=== PATIENT | female | born 2000 | race Two or more races ===

== ENCOUNTER 2024-03-22 17:13 | Observation (INO) | payer MEDICAID, SELFPAY ==
[2024-03-22 17:31] VITALS: BP 119/77; PULSE 81
[2024-03-22 17:34] VITALS: BMI 40.4
--- NOTE | 2024-03-22 17:59 | XR_ITS ---
Examination: OB Transvaginal ultrasound of the pelvis, Limited Technique: Transvaginal sonographic images pelvis performed using sears scale imaging Exam date and time: March 22, 2024 1822 hrs. Indications: Labor evaluation unknown cervical length Findings: Cervix 5.1 cm presentation cephalic Impression: Cervix 5.1 cm closed.
[2024-03-22 18:11] LABS: Collection Type, Urine Clean Catch
[2024-03-22 18:36] LABS: Bilirubin,Urine Negative (Negative); Blood,Urine Negative (Negative); Clarity,Urine Turbid (Clear/Hazy); Color,Urine Yellow (Lt Yel-Yel); Glucose, Urine Negative (Negative); Ketones,Urine Negative (Negative); Leukocyte Esterase,Urine Positive (Negative); Nitrite,Urine Negative (Negative); PH,Urine 6.5 (5.0-7.0); Protein,Urine Trace (Neg - Trace); RBC,Urine 3 /hpf (0-3); Specific Gravity,Urine 1.026 (1.001-1.035); Squamous Epithelial Cell,Urine 6 /hpf (0-5); WBC,Urine 25 /hpf (0-5)
[2024-03-22 19:33] VITALS: BP 116/74; PULSE 61
== END 2024-03-22 20:00 | disposition home or self-care (01) ==
PROVIDERS: Admitting Provider Student in an Organized Health Care Education/Training Program; Visit Provider Student in an Organized Health Care Education/Training Program
DX: O47.03 False labor before 37 completed weeks of gestation, third trimester (principal); O36.8130 Decreased fetal movements, third trimester, not applicable or unspecified; Z3A.31 31 weeks gestation of pregnancy
CPT/HCPCS: 59025; 59899; 76817; 81001; G0378

== ENCOUNTER 2024-04-30 22:20 | Observation (INO) | payer MEDICAID, SELFPAY ==
[2024-04-30 22:32] VITALS: BP 159/101; PULSE 127
[2024-04-30 22:38] VITALS: BP 113/57; PULSE 103
[2024-04-30 22:47] VITALS: BMI 43.3
[2024-04-30 22:58] VITALS: BP 125/76; PULSE 88
== END 2024-04-30 23:35 | disposition home or self-care (01) ==
PROVIDERS: Admitting Provider Obstetrics & Gynecology; Visit Provider Nurse Practitioner Women's Health
DX: O47.1 False labor at or after 37 completed weeks of gestation (principal); Z3A.37 37 weeks gestation of pregnancy
CPT/HCPCS: 59025; 59899

== ENCOUNTER 2024-05-10 08:10 | Outpatient (RCR) | payer MEDICAID, SELFPAY ==
--- NOTE | 2024-04-12 08:15 | XR_ITS ---
Examination: Biophysical profile, ultrasound Date and time of exam: April 12, 2024 0844 hours INDICATIONS: Diagnosis obesity complicating Technique: Multiple transabdominal sonographic images of the pelvis abdomen obtained. Attention is directed to the breathing movement, gross body movement, amniotic fluid volume and tone. Findings: Amniotic fluid index 16.6 cm Total biophysical profile is 8 of 8. breathing movement is 2. Gross body movement is 2. tone is 2. Qualitative amniotic fluid volume is 2 Impression: Biophysical profile is 8 of 8.
[2024-04-12 09:32] VITALS: BP 102/63; PULSE 105; RESP 16; TEMP 36.8
--- NOTE | 2024-04-19 08:28 | XR_ITS ---
Examination: Biophysical profile, ultrasound Date and time of exam: April 19, 2024 0835 hours INDICATIONS: Obesity complicating Technique: Multiple transabdominal sonographic images of the pelvis abdomen obtained. Attention is directed to the breathing movement, gross body movement, amniotic fluid volume and tone. Findings: Amniotic fluid index 10.0 cm Total biophysical profile is 8 of 8. breathing movement is 2. Gross body movement is 2. tone is 2. Qualitative amniotic fluid volume is 2 Impression: Biophysical profile is 8 of 8.
[2024-04-19 09:10] VITALS: BP 125/73; PULSE 74; RESP 16; TEMP 36.7
--- NOTE | 2024-04-26 08:28 | XR_ITS ---
Examination: Biophysical profile, ultrasound Date and time of exam: January 26, 2024 0835 hours INDICATIONS: Diagnosis obesity complicating Technique: Multiple transabdominal sonographic images of the pelvis abdomen obtained. Attention is directed to the breathing movement, gross body movement, amniotic fluid volume and tone. Findings: Amniotic fluid index 9.4 cm Total biophysical profile is 8 of 8. breathing movement is 2. Gross body movement is 2. tone is 2. Qualitative amniotic fluid volume is 2 Impression: Biophysical profile is 8 of 8.
[2024-04-26 09:15] VITALS: BP 120/69; PULSE 89; RESP 16; TEMP 36.9
--- NOTE | 2024-05-03 08:19 | XR_ITS ---
Examination: Biophysical profile, ultrasound Date and time of exam: May 03, 2024 0824 hours INDICATIONS: Pelvic pressure today, maternal obesity Technique: Multiple transabdominal sonographic images of the pelvis abdomen obtained. Attention is directed to the breathing movement, gross body movement, amniotic fluid volume and tone. Findings: Amniotic fluid index 8.5 cm Total biophysical profile is 8 of 8. breathing movement is 2. Gross body movement is 2. tone is 2. Qualitative amniotic fluid volume is 2 Impression: Biophysical profile is 8 of 8.
[2024-05-03 08:52] VITALS: BP 113/72; RESP 16; TEMP 36.8
--- NOTE | 2024-05-10 08:18 | XR_ITS ---
Examination: Biophysical profile, ultrasound Date and time of exam: May 12, 2024 at 0819 hours INDICATIONS: Maternal obesity complicating Technique: Multiple transabdominal sonographic images of the pelvis abdomen obtained. Attention is directed to the breathing movement, gross body movement, amniotic fluid volume and tone. Findings: Amniotic fluid index 10.9 cm Total biophysical profile is 8 of 8. breathing movement is 2. Gross body movement is 2. tone is 2. Qualitative amniotic fluid volume is 2 Impression: Biophysical profile is 8 of 8.
[2024-05-10 09:01] VITALS: BP 126/83; PULSE 109; RESP 16; TEMP 36.7
== END 2024-05-10 23:59 | disposition home or self-care (01) ==
LOC: S4S1 08:10
PROVIDERS: Referring Provider Nurse Practitioner Women's Health; Visit Provider Nurse Practitioner Women's Health
DX: O99.213 Obesity complicating pregnancy, third trimester (principal); E66.9 Obesity, unspecified; Z3A.38 38 weeks gestation of pregnancy
CPT/HCPCS: 59025; 76819

== ENCOUNTER 2024-05-14 23:06 | Inpatient (IN) | payer MEDICAID, SELFPAY ==
[2024-05-14] VITALS (17 sets, daily range): BP systolic 126–139; BP diastolic 87–100; PULSE 77–98; RESP 16–100; TEMP 36.4; O2SAT 100; BMI 37.3
[2024-05-15] VITALS (181 sets, daily range): BP systolic 0–158; BP diastolic 0–101; PULSE 78–142; RESP 16–18; TEMP 36.6–36.9; O2SAT 94–100
[2024-05-15] MEDS: RINGERS LACTATED 1000 ML 1,000 ML 100 ML IV ×3 (01:16→21:31)
[2024-05-15] MEDS: Ampicillin Inj 2,000 MG in SODIUM CHLORIDE 0.9% (P) 100 ML 200 MG IV (01:19)
[2024-05-15 01:31] LABS: Basophils % (Auto) 1 % (0-2.5); Eosinophils # (Auto) 0.1 Thou/mm3 (0.0-0.5); Eosinophils % (Auto) 1 % (0-10); Immature Granulocytes % (Auto) 0 % (0-0); Immature Granulocytes Auto 0.02 Thou/mm3 (0.00-0.00); Lymphocytes # (Auto) 2.2 Thou/mm3 (1.0-4.8); Lymphocytes % (Auto) 37 % (10-50); Mean Corpuscular HGB Conc 35.3 g/dl (31.0-37.0); Mean Corpuscular Volume 79 fL (80-100); Monocytes # (Auto) 0.9 Thou/mm3 (0.0-0.8); Monocytes % (Auto) 15 % (0-12); Neutrophils # (Auto) 2.8 Thou/mm3 (1.8-7.7); Neutrophils % (Auto) 47 % (37-80); Nucleated Red Blood Cell % 0 /100 WBC (0); Platelet Count 287 Thou/mm3 (140-440); RDW Standard Deviation 37.7 fL (36.4-46.3); Red Blood Count 4.29 Miln/mm3 (4.00-5.20); White Blood Count 5.9 Thou/mm3 (3.6-11.0)
[2024-05-15 01:43] LABS: Alanine Aminotransferase 14 U/L (10-49); Albumin, Serum 4.2 gm/dL (3.5-5.0); Albumin/Globulin Ratio 1.6 (1.2-2.2); Alkaline Phosphatase 190 U/L (46-116); Anion Gap 9 (7-16); Aspartate Amino Transferase 17 U/L (0-34); BUN/Creatinine Ratio 17 Ratio (12-20); Bilirubin,Total 0.3 mg/dL (0.3-1.2); Blood Urea Nitrogen 10 mg/dL (9-23); Calcium 9.6 mg/dL (8.3-10.6); Calcium (Corrected) 9.6 mg/dL (8.5-10.1); Carbon Dioxide 20.6 mMol/L (20.0-31.0); Chloride 105 mMol/L (98-107); Creatinine (Component) 0.6 mg/dL (0.6-1.3); Estimated Creatinine Clearance 169.3 mL/min (>60); Globulin 2.6 gm/dL (2.3-3.5); Glucose 91 mg/dL (74-106); LDH (Lactate Dehydrogenase) 202 U/L (120-246); Osmolality,Calculated 269 (275-295); Potassium 3.9 mMol/L (3.4-5.1); Sodium 135 mMol/L (136-145); Total Protein 6.8 gm/dL (5.7-8.2); Uric Acid 3.6 mg/dL (3.1-7.8); eGFR > 60 See Note
[2024-05-15 01:55] LABS: Amphetamine/Metham Scrn,Ur OB Negative (Negative); Benzoylecgonine Screen, Ur OB Negative (Negative); Opiate Screen,Urine OB Negative (Negative); THC Screen,Urine OB Negative (Negative)
[2024-05-15 02:00] LABS: Fibrinogen 574 mg/dL (175-375); INR 0.9 (0.9-1.3); Partial Thromboplastin Time 26.5 Seconds (22.0-36.0); Prothrombin Time 9.7 Seconds (9.0-12.2)
[2024-05-15 02:01] LABS: Syphilis Nonreactive (Nonreactive)
--- NOTE | 2024-05-15 02:22 | PD.LDHP ---
Documentation for date of: 05/15/24 OB Labor/Induct. HPI History of Present Illness History of present illness: dictated in nuance [id number] Meds Home Medications and Allergies Home Medications ?Medication ?Instructions ?Recorded ?Confirmed ?Type vits no.124-ferrous fum 1 tab PO DAILY 03/14/24 05/14/24 History 27 mg iron-folic acid 800 mcg tablet ( Vitamin) Allergies Allergy/AdvReac Type Severity Reaction Status Date / Time Milk Containing Products Allergy Intermediate Gastrointestinal Verified 05/14/24 23:30 (Dairy) Upset OB Exam Physical Exam Vital signs: Temp Pulse Resp BP Pulse Ox O2 Del Method 97.9 F 89 16 127/77 100 Room Air 05/15/24 00:30 05/15/24 01:23 05/14/24 23:51 05/15/24 01:23 05/15/24 00:13 05/14/24 23:10 OB Results Labs 05/15/24 00:37 05/15/24 00:37 Labs: Short CBC 05/15/24 Range/Units 00:37 WBC 5.9 (3.6-11.0) Thou/mm3 Hgb 12.0 (12.0-16.0) g/dL Hct 34.0 L (36.0-46.0) % Plt Count 287 (140-440) Thou/mm3 BMP 05/15/24 00:37 Sodium 135 L Potassium 3.9 Chloride 105 Carbon Dioxide 20.6 BUN 10 Creatinine 0.6 Glucose 91 Calcium 9.6 Liver Function 05/15/24 Range/Units 00:37 Total Bilirubin 0.3 (0.3-1.2) mg/dL AST 17 (0-34) U/L ALT 14 (10-49) U/L Alkaline Phosphatase 190 H (46-116) U/L Albumin 4.2 (3.5-5.0) gm/dL
--- NOTE | 2024-05-15 03:06 | ESHP_ITS ---
RE: AMADEO MERCADO : 2000 DATE OF ADMISSION: 05/19/2024 HISTORY OF PRESENT ILLNESS: This is a 24-year-old 1 para 0 with intrauterine at 39 weeks and 3 days, who presents to labor and delivery complaining of leaking fluids and uterine contractions and was noted to be grossly ruptured. She was admitted in early labor. She has established care at [facility], which is documented. The only significant finding was urine drug screen at first trimester for marijuana. ALLERGIES: MILK PRODUCTS. MEDICATIONS: multivitamin 1 p.o. daily. SOCIAL HISTORY: She has used marijuana early in . She denies any alcohol or other drug use. PAST MEDICAL HISTORY: Urinary tract infection. PAST SURGICAL HISTORY: Denies. FAMILY HISTORY: Denies. REVIEW OF SYSTEMS: She denies any chest pain, palpitations, shortness of breath or lower extremity pain. She denies any headache, change in vision or right upper quadrant pain. PHYSICAL EXAMINATION: VITAL SIGNS: Blood pressure 127/74, heart rate 89, respirations 18, and temperature is 98.2. HEENT: Oropharynx and sclerae are clear. LUNGS: Clear to auscultation bilaterally. HEART: Regular rate and rhythm. ABDOMEN: Gravid, term size consistent with 7-1/2 pounds. PELVIC: See RN notes. EXTREMITIES: Nontender. SKIN: No gross rashes or lesions. NEUROLOGIC: No focal deficits. ASSESSMENT AND PLAN: Intrauterine at 39 weeks and 3 days, labor, spontaneous rupture of membranes. Anticipate spontaneous vaginal delivery. Informed consent was obtained. The patient was made aware of the risks, complications, alternatives, and benefits of the proposed procedure and she agrees. She agrees with operative vaginal delivery and delivery. She agrees with these modes of delivery if indicated. DT: 02:22:15 TT: 03:04:00 Ref: [id number] - TID: [id number]
[2024-05-15] MEDS: Ampicillin Inj 1,000 MG in SODIUM CHLORIDE 0.9% (P) 50 ML 50 MG IV ×4 (05:20→18:08)
--- NOTE | 2024-05-15 08:48 | PD.LDPN ---
Documentation for date of: 05/15/24 OB Labor Progress Note Pelvic Exam Dilation (cm): 2 Effacement (%): 50 station: -3 Amniotic membrane status: Ruptured Contractions Contraction frequency: q 4 - 5 m Status status: Category l Assessment and Plan Comments: Augment with Pitocin Anticipate
[2024-05-15] MEDS: OXYTOCIN in NS 30 units 30 UNIT/500 ML BAG IV (09:29)
--- NOTE | 2024-05-15 14:44 | PD.LDPN ---
Documentation for date of: 05/15/24 OB Labor Progress Note Pain Control Comments: None Pelvic Exam Dilation (cm): 1-2 Effacement (%): 50 station: -3 Amniotic membrane status: Ruptured Comments: IUPC placed Contractions Monitor mode: Internal Contraction frequency: q 3 m Status status: Category l Assessment and Plan Comments: IUPC placed Augment with Pitocin to acheive 180-200 mVUs
[2024-05-15] MEDS: fentaNYL CIT INJ 50 mCg/ML AMP 2ML 100 MCG IV ×3 (18:06→21:28)
[2024-05-15] MEDS: ceFAZolin/D5W 2 GM IV 2 GM/100 ML BAG IV (22:54)
[2024-05-15] MEDS: METOCLOPRAMIDE INJ 5 MG/ML VIAL 2 ML 10 MG IVP (22:55)
[2024-05-15] MEDS: FAMOTIDINE INJ 10 MG/ML VIAL 2 ML 20 MG IV (22:56)
--- NOTE | 2024-05-15 23:04 | PD.LDPN ---
Documentation for date of: 05/15/24 OB Labor Progress Note Pelvic Exam Dilation (cm): 4 Effacement (%): 70 station: -2 Amniotic membrane status: Ruptured Contractions Monitor mode: Internal Contraction frequency: q 3 m Status status: Category ll Assessment and Plan Comments: Arrest of Dilitation Chorioamnionitis Ampicillin/Gentamycin Delivery Informed consent was obtained. The patient was made aware of the risks, complications, alternatives and benefits of the proposed procedure and she agrees.
--- NOTE | 2024-05-15 23:07 | PD.LDDS ---
DS: Providers Provider Date of admission: 05/14/24 23:06 Primary care physician: Physician No Primary/Family Admitting Provider: Ty Darling MD Attending Provider on Admission: Ty Darling MD Attending Provider on DC: Ty Darling MD Discharging Provider: Ty Darling MD DS: Diagnosis Discharge Diagnosis (1) delivery delivered: Status: Acute (2) Chorioamnionitis: Status: Acute (3) Arrest of dilation, delivered, current hospitalization: Status: Acute Problem List Completed Was Problem List Reviewed/Reconciled?: Yes Summary/Hosp Course Brief History: dictated in [facility] [id number] Time Spent with Patient Time attestation: Total time spent providing and/or coordinating discharge services: Exam Vital Signs Temp Pulse Resp BP Pulse Ox O2 Del Method 98.4 F 120 H 16 132/70 H 100 Room Air 05/15/24 20:33 05/15/24 23:03 05/15/24 20:33 05/15/24 23:03 05/15/24 23:01 05/14/24 23:10 Discharge Plan Plan Patient Disposition: HOME (Self Care) Patient condition on transfer: Stable Prescriptions/Referrals Prescriptions/Med Rec: New hydrocodone-acetaminophen 5-325 mg tablet 1 tab PO Q6H MDD 4 PRN (Reason: pain) Qty: 20 0RF ibuprofen 600 mg tablet 600 mg PO Q6H PRN (Reason: pain) Qty: 30 0RF No Action Vitamin 27 mg iron- 800 mcg Tablet 1 tab PO DAILY Referrals: No Primary/Family,Physician [Primary Care Provider] - Patient/Caregiver Discharge Instructions Discharge Activity: activity as tolerated Other Discharge Activity Instructions:: Follow up [facility] 1 week. Print Language: Citizen [place] Stand Alone Forms: Eva Award Info., Patient Portal Info Letter, Work/Release Restrictions Planned Discharge Date 05/17/24
[2024-05-16] VITALS (17 sets, daily range): BP systolic 107–141; BP diastolic 64–95; PULSE 65–117; RESP 12–20; TEMP 36.7–37; O2SAT 98–100; BMI 43.7
--- NOTE | 2024-05-16 00:30 | SUR.OPER ---
Viable female born at 2330.
[2024-05-16] MEDS: KETOROLAC INJ 30 MG/ML VIAL IVP ×4 (01:17→21:13)
[2024-05-16] MEDS: OXYTOCIN in NS 20 units 20 UNIT/1,000 ML BAG 125 UNIT IV (01:22)
--- NOTE | 2024-05-16 01:43 | ESOP_ITS ---
RE: AMADEO MERCADO : 2000 DATE OF OPERATION: 05/15/2024 PREOPERATIVE DIAGNOSES: 1. Intrauterine at 39 weeks and 3 days. 2. Prolonged rupture of membranes. 3. Chorioamnionitis. 4. Arrest of dilatation. POSTOPERATIVE DIAGNOSES: 1. Intrauterine at 39 weeks and 3 days. 2. Prolonged rupture of membranes. 3. Chorioamnionitis. 4. Arrest of dilatation. PROCEDURE PERFORMED: Primary low transverse via Pfannenstiel skin incision. SURGEON: Ty Darling DO PHYSICAL ANTHROPOLOGIST: YRN Ocasio ANESTHESIA: Epidural. ANESTHESIOLOGIST: Albino Lewis CRNA ESTIMATED BLOOD LOSS: 700 mL. COMPLICATIONS: None. COUNTS: Correct. PATHOLOGY: Placenta. FINDINGS: A live female , cephalic presentation, clear amniotic fluid, occiput posterior, placenta removed complete and intact. Uterus, ovaries, fallopian tubes grossly within normal limits. DESCRIPTION OF PROCEDURE: After proper informed consent was obtained and the patient was aware of the risks, complications, alternatives, and benefits of the proposed procedure, she was taken to the operating room where epidural anesthesia was found to be adequate. She was prepped and draped in the usual sterile fashion. A timeout was performed and a Pfannenstiel skin incision was made with a scalpel, carried through to the underlying layer of fascia with the Bovie. The fascia was nicked in the midline and incision extended bilaterally with the Bovie. The inferior aspect of the fascial incision was grasped with Jermain clamps and elevated. The underlying rectus muscle was dissected off with the Bovie. The rectus muscles were at the midline. The peritoneum identified between two Guadalupe clamps and entered sharply with the Metzenbaum scissors. The incision was extended superiorly and inferiorly with good visualization of the bladder. The bladder blade was then inserted. The vesicouterine peritoneum was incised transversely, and bladder flap created digitally. The bladder blades were reinserted. The lower uterine segment was incised in the transverse fascia with scalpel. The incision was extended bilaterally digitally. The 's head delivered. The mouth and nose were suctioned with bulb suction and shoulder and body delivered atraumatically. The cord was clamped and cut. The infant was sent off awaiting pediatric staff. Cord blood and gases were sent. Placenta was then removed manually. The uterus was then exteriorized and cleared of all clots and debris. The uterus incision was repaired with 1-0 chromic catgut suture running in a locking fashion. A second layer of same suture was used to imbricate the first layer and obtained excellent hemostasis. The vesicouterine peritoneum was closed with 2-0 chromic catgut suture in a running fashion. The uterus was firm. It was returned to the abdomen. The gutters were cleared of all clots and debris. The peritoneum was closed with 0 chromic catgut suture in running fashion. The muscle was closed with a chromic catgut suture in running fashion. The fascia was closed with #0 Vicryl beginning at each angle, ending in the center in running fashion. Subcutaneous tissue was irrigated with normal saline solution and found to be hemostatic, closed with 2-0 chromic catgut suture in running fashion. The skin was closed with 4-0 Monocryl. A Dermabond, Prineo dressing was applied. A sterile pressure dressing was applied. She tolerated the procedure well. All counts were correct. I discussed with the patient the nature of her condition, the intraoperative findings, expectations for recovery. All questions were answered. DT: 00:07:34 TT: 01:41:00 Ref: [id number] - TID: [id number]
[2024-05-16] MEDS: ACETAMINOPHEN 325 MG TABLET 650 MG PO ×3 (02:13→17:22)
[2024-05-16 06:14] LABS: Basophils % (Auto) 0 % (0-2.5); Eosinophils % (Auto) 0 % (0-10); Hematocrit 30.7 % (36.0-46.0); Hemoglobin 10.5 g/dL (12.0-16.0); Immature Granulocytes % (Auto) 1 % (0-0); Immature Granulocytes Auto 0.11 Thou/mm3 (0.00-0.00); Lymphocytes # (Auto) 1.6 Thou/mm3 (1.0-4.8); Lymphocytes % (Auto) 12 % (10-50); Mean Corpuscular HGB Conc 34.2 g/dl (31.0-37.0); Mean Corpuscular Hemoglobin 27.9 pg (25.0-35.0); Mean Corpuscular Volume 82 fL (80-100); Monocytes # (Auto) 1.2 Thou/mm3 (0.0-0.8); Monocytes % (Auto) 9 % (0-12); Neutrophils # (Auto) 9.9 Thou/mm3 (1.8-7.7); Neutrophils % (Auto) 77 % (37-80); Nucleated Red Blood Cell % 0 /100 WBC (0); Platelet Count 242 Thou/mm3 (140-440); RDW Standard Deviation 38.9 fL (36.4-46.3); Red Blood Count 3.76 Miln/mm3 (4.00-5.20); White Blood Count 12.8 Thou/mm3 (3.6-11.0)
[2024-05-16] MEDS: AMPICILLIN/SULBAC INJ 3 GM in SODIUM CHLORIDE 0.9% (P) 100 ML IV ×3 (06:34→17:27)
--- NOTE | 2024-05-16 07:40 | PD.LDPPPRG ---
Subjective Subjective Interval history: Delivery type: for chorioamnionitis, currently on Unasyn Patient doing well this morning. No acute complaints. Ambulating, tolerating p.o. and voiding without difficulty. HTN/Pre-Eclampsia screen: No chest pain, shortness of breath, headache, visual changes, epigastric or right upper quadrant pain. Breast-feeding, lochia diminishing. Bowel: Flatus+ Exam Vital Signs Temp Pulse Resp BP Pulse Ox O2 Del Method 98.2 F 65 18 113/76 100 Room Air 05/16/24 06:57 05/16/24 06:57 05/16/24 06:57 05/16/24 06:57 05/16/24 06:57 05/16/24 06:57 Constitutional Constitutional: no acute distress Routine HEENT Exam Head: Present normocephalic and atraumatic Eye: Present EOMI and PERRL ENT: Present mucous membranes moist Routine Neck Exam Neck: Present supple and trachea midline Routine Respiratory Exam Respiratory: Present chest non-tender, lungs clear, normal breath sounds and no resp distress Routine Cardiovascular Exam Cardiovascular: Present RRR Routine Abdominal Exam Abdominal: Present soft and normoactive bowel sounds Routine Extremities Exam Extremities: Present full ROM Routine Skin Exam Skin: Present intact, dry and warm Routine Neurological Exam Neurological: Present alert, oriented X3 and CN II-XII intact Routine Psychiatric Exam Psychiatric: Present normal affect and normal thought process Objective Labs 05/16/24 05:04 05/15/24 00:37 Labs: Laboratory Results - last 24 hr 05/16/24 05:04 WBC 12.8 H D RBC 3.76 L Hgb 10.5 L Hct 30.7 L MCV 82 MCH 27.9 MCHC 34.2 RDW Std Deviation 38.9 Plt Count 242 D Neut % (Auto) 77 Lymph % (Auto) 12 [place] % (Auto) 9 Eos % (Auto) 0 Baso % (Auto) 0 Neut # (Auto) 9.9 H Lymph # (Auto) 1.6 [place] # (Auto) 1.2 H Eos # (Auto) 0.0 Baso # (Auto) 0.0 Immature Gran # (Auto) 0.11 H Absolute Nucleated RBC 0.00 Immature Gran % 1 H Nucleated RBC % 0 Assessment & Plan Problem List (1) delivery delivered: Status: Acute Assessment and plan: 1. Continue routine /post-op care 2. Labs reviewed, cbc appropriate 3. Remove dressing/Jacobson 4. Encourage to ambulate, shower 5. Encourage PO intake, breast feeding 6. Will continue antibiotics for 24 hours (2) Chorioamnionitis: Status: Acute (3) Arrest of dilation, delivered, current hospitalization: Status: Acute Time Spent With Patient Time: Total time spent is greater than 50% in coordination of care (as documented) at patient's floor/unit and/or counseling patient:
[2024-05-16] MEDS: SIMETHICONE 80 MG CHEW PO (08:32)
--- NOTE | 2024-05-16 08:56 | ESPR_ITS ---
RE: AMADEO MERCADO : 2000 DATE OF SERVICE: 05/16/2024 S: Postoperative day #1, the patient denies any problem or complaints. She has got adequate urine output with Jacobson catheter in place. She denies any excessive vaginal bleeding. She denies any dizziness or lightheadedness. She is tolerating a regular diet. She denies passing flatus. She denies any nausea or vomiting. She has got adequate pain relief. She denies any chest pain, palpitations, shortness of breath or lower extremity pain. O: Vital Signs: Blood pressure is 113/76, heart rate 65, respirations 18, temperature 98.2, and pulse ox is 100% on room air. Lungs: Clear to auscultation bilaterally. Heart: Regular rate and rhythm. Abdomen: Nondistended. Dressing is dry and intact. Fundus is firm. Extremities: Nontender. LABORATORY DATA: Hemoglobin pre-delivery is 12.0. Post delivery is 10.5. A: 1. Postoperative day #1, status post delivery. 2. Chorioamnionitis. P: Continue Unasyn until discharge. Remove dressing. Discontinue Jacobson catheter. Encourage ambulation, support, and possible discharge home tomorrow. DT: 07:31:05 TT: 08:55:00 Ref: [id number] - TID: [id number]
--- NOTE | 2024-05-16 10:59 | PC.SS ---
MORNING NEWS ANCHOR conducted bedside contact with the patient to address nursing referral indicating patient history of THC use. MORNING NEWS ANCHOR introduced self, role and basis of referral. Present with patient was Martinez VELÁZQUEZ. Patient gave permission for FOB to be present during discussion. Patient confirmed past use of THC for recreational purposes. Once confirmed patient ceased use. Patient stated that plan will be to discontinue use due to intention to breast feed infant. , Su; is the patient?s first child. Infant delivered via . Patient is aligned with WIC, SNAP and TANF. Patient denies history of alcohol/drug abuse. Patient denies CWS intervention. Patient denies episodes of domestic violence. Patient denies possessing a history of mental health, reports no current possession of depression or anxiety. OB services provided by [facility]. Patient reports consistency with OB appointments. Patient has access to appropriate supplies and equipment; to include a car seat. Family will provide transportation upon discharge. Patient describes possessing support system consisting of mother and FOB. MORNING NEWS ANCHOR provided the patient with community resources to include [facility] and Warm Line. No further intervention required at this time, social media marketing manager will be available to address any further concerns. MORNING NEWS ANCHOR updated bedside nurse.
[2024-05-17] MEDS: ACETAMINOPHEN 325 MG TABLET 650 MG PO (00:37)
[2024-05-17 00:42] VITALS: BP 126/85; PULSE 112; RESP 17; TEMP 37; O2SAT 98
[2024-05-17] MEDS: IBUPROFEN TAB 400 MG TABLET 800 MG PO ×2 (04:41→13:15)
--- NOTE | 2024-05-17 08:13 | PD.LDPPPRG ---
Subjective Subjective Interval history: Delivery type: , on Unasyn for chorioamnionitis, discontinued at 24 hours Patient doing well this morning. No acute complaints. Ambulating, tolerating p.o. and voiding without difficulty. HTN/Pre-Eclampsia screen: No chest pain, shortness of breath, headache, visual changes, epigastric or right upper quadrant pain. Breast-feeding, lochia diminishing. Bowel: Flatus+/ BM+ Exam Vital Signs Temp Pulse Resp BP Pulse Ox O2 Del Method 98.6 F 112 H 17 126/85 H 98 Room Air 05/17/24 00:42 05/17/24 00:42 05/17/24 00:42 05/17/24 00:42 05/17/24 00:42 05/17/24 00:42 Constitutional Constitutional: no acute distress Routine HEENT Exam Head: Present normocephalic and atraumatic Eye: Present EOMI and PERRL ENT: Present mucous membranes moist Routine Neck Exam Neck: Present supple and trachea midline Routine Respiratory Exam Respiratory: Present chest non-tender, lungs clear, normal breath sounds and no resp distress Routine Cardiovascular Exam Cardiovascular: Present RRR Routine Abdominal Exam Abdominal: Present soft and normoactive bowel sounds Routine Extremities Exam Extremities: Present full ROM Routine Skin Exam Skin: Present intact, dry and warm Routine Neurological Exam Neurological: Present alert, oriented X3 and CN II-XII intact Routine Psychiatric Exam Psychiatric: Present normal affect and normal thought process Objective Labs 05/16/24 05:04 05/15/24 00:37 Assessment & Plan Problem List (1) delivery delivered: Status: Acute Assessment and plan: PPD/POD#2 1. Continue routine care 2. Transition to PO meds. 3. Encourage to ambulate/ breast-feed 4. Anticipate discharge home later in the evening today since patient was a late night delivery (2) Chorioamnionitis: Status: Acute (3) Arrest of dilation, delivered, current hospitalization: Status: Acute Time Spent With Patient Time: Total time spent is greater than 50% in coordination of care (as documented) at patient's floor/unit and/or counseling patient:
[2024-05-17 08:14] VITALS: BP 116/87; PULSE 95; RESP 19; TEMP 36.6; O2SAT 99
[2024-05-17] MEDS: ENOXAPARIN SOD INJ 40 MG/0.4 ML SYRINGE SC (08:43)
[2024-05-17 15:20] VITALS: BP 116/77; PULSE 85; RESP 18; TEMP 36.8; O2SAT 99
== END 2024-05-17 17:53 | disposition home or self-care (01) | DRG 540 ==
LOC: S4SX 23:08 → S4NX 05-15 23:58 → S4SX 05-16 09:12
PROVIDERS: Admitting Provider Specialist; Visit Provider Obstetrics & Gynecology
PROC: 10D00Z1 Extraction of Products of Conception, Low, Open Approach (ICD-10-PCS; CPT 59514; principal; 2024-05-15 23:05)
DX: O42.92 Full-term premature rupture of membranes, unspecified as to length of time between rupture and onset of labor (principal); O41.1230 Chorioamnionitis, third trimester, not applicable or unspecified; O62.0 Primary inadequate contractions; Z37.0 Single live birth; Z3A.39 39 weeks gestation of pregnancy
CPT/HCPCS: 36415; 59025; 80053; 80307; 81001; 83615; 84550; 85025; 85384; 85610; 85730; 86780; 86850; 86900; 86901; 94762; A4649; J0290; J0295; J0689; J1580; J1650; J1885; J2250; J2274; J2371; J2590; J2704; J2765; J2795; J3010; J3490; J7050; J7120; A9270; J0690; J2270

== ENCOUNTER 2024-05-28 18:16 | Emergency (ER) | payer MEDICAID, SELFPAY ==
[2024-05-28 19:03] VITALS: BP 122/82; PULSE 69; RESP 18; TEMP 36.8; O2SAT 98
--- NOTE | 2024-05-28 19:06 | EDRME_ITS ---
Rapid Medical Screening Exam RME Arrival date/time: 05/28/24 18:16 Chief Complaint: Wound/Laceration Time Seen by Provider: 05/28/24 18:56 Vital signs: Vital Signs Temperature 98.2 F 05/28/24 19:03 Pulse Rate 69 05/28/24 19:03 Respiratory Rate 18 05/28/24 19:03 Blood Pressure 122/82 05/28/24 19:03 Pulse Oximetry (%) 98 05/28/24 19:03 Oxygen Delivery Method Room Air 05/28/24 19:03 RME Narrative: 24-year-old female status post by Dr Darling 2 weeks ago presenting with leakage from the site on the lateral aspect. It is clear- colored. No vomiting or fever. No abdominal pain. The patient was seen initially labs will be sent and the patient will be reevaluated.
--- NOTE | 2024-05-28 19:06 | XR_ITS ---
Examination: Abdomen sonogram, Limited Date and time of exam: May 28, 2023 1145 hrs. Indications: Discharge from the patient's incision noticed beginning 2 weeks ago Technique: Real-time sears scale transabdominal sonographic images of the upper abdomen obtained. Findings: Free fluid at the area concern, irregular margins, 7 x 8 x 16 mm Impression: Free fluid at the area concern in subcutaneous soft tissue, 17 x 8 x 16 mm, clinical correlation advised
[2024-05-28 20:06] LABS: Basophils % (Auto) 1 % (0-2.5); Eosinophils # (Auto) 0.1 Thou/mm3 (0.0-0.5); Eosinophils % (Auto) 3 % (0-10); Hematocrit 38.1 % (36.0-46.0); Hemoglobin 12.7 g/dL (12.0-16.0); Immature Granulocytes % (Auto) 0 % (0-0); Immature Granulocytes Auto 0.01 Thou/mm3 (0.00-0.00); Lymphocytes # (Auto) 2.4 Thou/mm3 (1.0-4.8); Lymphocytes % (Auto) 48 % (10-50); Mean Corpuscular HGB Conc 33.3 g/dl (31.0-37.0); Mean Corpuscular Hemoglobin 27.1 pg (25.0-35.0); Mean Corpuscular Volume 81 fL (80-100); Monocytes # (Auto) 0.4 Thou/mm3 (0.0-0.8); Monocytes % (Auto) 8 % (0-12); Neutrophils # (Auto) 2.1 Thou/mm3 (1.8-7.7); Neutrophils % (Auto) 41 % (37-80); Nucleated Red Blood Cell % 0 /100 WBC (0); Platelet Count 487 Thou/mm3 (140-440); RDW Standard Deviation 39.4 fL (36.4-46.3); Red Blood Count 4.69 Miln/mm3 (4.00-5.20)
[2024-05-28 20:23] LABS: Alanine Aminotransferase 28 U/L (10-49); Albumin, Serum 4.8 gm/dL (3.5-5.0); Albumin/Globulin Ratio 1.3 (1.2-2.2); Alkaline Phosphatase 104 U/L (46-116); Anion Gap 9 (7-16); Aspartate Amino Transferase 27 U/L (0-34); BUN/Creatinine Ratio 16 Ratio (12-20); Bilirubin,Total 0.5 mg/dL (0.3-1.2); Blood Urea Nitrogen 11 mg/dL (9-23); Calcium 10.2 mg/dL (8.3-10.6); Calcium (Corrected) 10.2 mg/dL (8.5-10.1); Carbon Dioxide 26.1 mMol/L (20.0-31.0); Chloride 103 mMol/L (98-107); Creatinine (Component) 0.7 mg/dL (0.6-1.3); Globulin 3.6 gm/dL (2.3-3.5); Glucose 85 mg/dL (74-106); Osmolality,Calculated 274 (275-295); Potassium 3.8 mMol/L (3.4-5.1); Sodium 138 mMol/L (136-145); Total Protein 8.4 gm/dL (5.7-8.2); eGFR > 60 See Note
[2024-05-29 01:43] VITALS: BP 135/86; PULSE 71; RESP 16; TEMP 36.8; O2SAT 100
--- NOTE | 2024-05-29 04:38 | EDNOTE_ITS ---
ED Wound/Laceration-RME/HPI General Chief Complaint: Wound/Laceration Stated Complaint: WOUND BLEEDING; POST OP 05/15/24 Time Seen by Provider: 05/28/24 18:56 Source: patient Arrival date/time: 05/28/24 18:16 Mode of arrival: ambulatory Limitations: no limitations RME / HPI RME / HPI narrative: --- DR. LYNN MAIN ED EVALUATION: 24-year-old female s/p by Dr Darling on 05/15/24 who presents to the ED via private auto from home for evaluation of leakage this past day from C- section site on the lateral aspect. It is clear-colored. No nausea, vomiting, diarrhea, abdominal pain or fever. Related Data Home Medications ?Medication ?Instructions ?Recorded ?Confirmed vits no.[id number] fum 1 tab PO DAILY 03/14/24 05/14/24 27 mg iron-folic acid 800 mcg tablet ( Vitamin) Previous Rx's ?Medication ?Instructions ?Recorded hydrocodone 5 mg-acetaminophen 325 1 tab PO Q6H PRN pain #20 tabs 05/15/24 mg tablet ibuprofen 600 mg tablet 600 mg PO Q6H PRN pain #30 tabs 05/15/24 Allergies Allergy/AdvReac Type Severity Reaction Status Date / Time Milk Containing Products Allergy Intermediate Gastrointestinal Verified 05/28/24 18:17 (Dairy) Upset Review of Systems Review of Systems Systems Reviewed: All systems reviewed, normal except as documented Past Medical History Past Medical History NEUROLOGIC: Negative Neurological Disorders or Seizures CARDIAC: Negative Cardiac Disorders or Congestive Heart Failure RESPIRATORY: Negative Chronic Obstructive Pulmonary Disease (COPD) GASTROINTESTINAL: Negative Gastrointestinal Disorders GENITOURINARY: Negative Genitourinary Disorders or Renal Disease REPRODUCTIVE: Negative Previous Pregnancies MUSCULOSKELETAL: Negative Musculoskeletal Disorders ENDOCRINE: Negative Endocrine Disorders, Diabetes Mellitus Type 1 or Diabetes Mellitus Type 2 HEMATOLOGIC: Negative Blood Disorders PSYCHO/SOCIAL: Positive Depression and Anxiety OTHER HISTORY: Negative Autoimmune Disease, Falls, Blood Transfusions, Anesthesia Reactions or Cancer Family History FAMILY HISTORY: Negative Family Psychiatric Problems, Family Respiratory Disorders, Family Cardiac Disorders, Family Gastrointestinal Problems, Family Cancer, Family Surgery or Family Anesthesia Reaction Surgical History SURGICAL: Positive Abdominal Surgery Social History SMOKING STATUS: Never smoker ED Exam Narrative Physical exam: Small superficial area of fluid to surgical site General Limitations: Present no limitations General appearance: Present alert and in no apparent distress Head Head exam: Present atraumatic, normocephalic and normal inspection Eye Eye exam: Present normal appearance, PERRL and EOMI ENT ENT exam: Present normal exam, normal oropharynx, TM's normal bilaterally and normal external ear exam Neck Neck exam: Present normal inspection and full ROM Chest Chest inspection: Present normal inspection and symmetric chest wall rise Respiratory Respiratory exam: Present normal lung sounds bilaterally Cardiovascular Cardiovascular exam: Present regular rate, normal rhythm and normal heart sounds Abdominal Exam Abdominal exam: Present normal bowel sounds Extremities Exam Extremities exam: Present normal inspection and full ROM Back Exam Back exam: Present normal inspection and full ROM Neurological Exam Neurological exam: Present alert, oriented X3 and CN II-XII intact Psychiatric Psychiatric exam: Present normal affect and normal mood; Absent depressed Skin Skin exam: Present warm, dry, intact and normal color Course Quality Measures none Orders Category Date Time Status US abdomen limited Stat Exams 05/28/24 19:06 Completed CBC Stat Lab 05/28/24 19:49 Completed CMP [Comprehensive Metabolic Panel] Stat Lab 05/28/24 19:49 Completed Vital Signs Vital signs: Vital Signs Temperature 98.2 F 05/28/24 19:03 Pulse Rate 69 05/28/24 19:03 Respiratory Rate 18 05/28/24 19:03 Blood Pressure 122/82 05/28/24 19:03 Pulse Oximetry (%) 98 05/28/24 19:03 Oxygen Delivery Method Room Air 05/28/24 19:03 Wound / Laceration MDM Narrative MDM Narrative:: ? Scribe Attestation: aCprice Koroma am scribing for and in the presence of Dr. Hall. Provider Notation: Although this document has been carefully reviewed, there may still be some phonetic and other typographical errors. These errors are purely grammatical due to imperfections in the software program and should not be construed in any way to compromise the substance of the patient's medical care during this visit. Patient data External records reviewed:: [facility] previous records Clinical information provided by:: patient Social determinants that could affect healthcare access:: none Patient has the following chronic illnesses:: depression, anxiety How is presenting disease/condition affected by chronic disease/condition?: uneffected by Evaluation data The following diagnostics were reviewed and interpreted by me:: lab results and radiology exam(s) Lab and/or radiology exams considered but not ordered:: n/a Interpretation Summary: I personally reviewed the radiology data and agree with the radiologist's interpretation. Examination: Abdomen sonogram, Limited Date and time of exam: May 28, 2023 1145 hrs. Indications: Discharge from the patient's incision noticed beginning 2 weeks ago Findings: Free fluid at the area concern, irregular margins, 7 x 8 x 16 mm Impression: Free fluid at the area concern in subcutaneous soft tissue, 17 x 8 x 16 mm, clinical correlation advised Dictated By: Bradley Duque MD Medications / Prescriptions Medications or Prescriptions considered but not ordered:: n/a Medication administrations:: as above, if any Consultations Consultation(s) initiated? (list below): No Diagnosis Wound Differential Diagnosis: laceration, abscess and abrasion Most likely diagnosis given after review of the tests above:: Seroma Admission Indicated Admission indicated?: not indicated Admission Request Was there a request for admission?: No Disposition Plan Disposition Plan: Discharge Discharge Attestation Discharge Attestation: The patient and all family members were given an opportunity to ask questions and understood the discharge instructions. Discharge instructions specifically effects, indications for sooner follow up or return to the emergency department, and the expected course of current diagnosis. Patient condition: Stable Discharge Plan Plan Patient Disposition: HOME (Self Care) Patient condition on transfer: Stable Prescriptions/Referrals Prescriptions/Med Rec: No Action hydrocodone-acetaminophen 5-325 mg tablet 1 tab PO Q6H MDD 4 PRN (Reason: pain) Qty: 20 0RF ibuprofen 600 mg tablet 600 mg PO Q6H PRN (Reason: pain) Qty: 30 0RF Vitamin 27 mg iron- 800 mcg Tablet 1 tab PO DAILY Referrals: Jamie Gomez MD [Primary Care Provider] - In 1 week Dominic Montes MD [Physician] - 05/29/24 5:21 am Problem List Clinical Impression: Seroma Patient/Caregiver Discharge Instructions Additional Instructions: Please follow-up with your primary care physician in the next 24 to 48 hours for wound check. Return sooner for any worsening symptoms, increasing drainage, any fever, or any other concerns. Today your ultrasound shows a very small gallardo perficial area of fluid. Print Language: Azeri Stand Alone Forms: Eva Award Info., Patient Portal Info Letter
[2024-05-29 05:31] VITALS: BP 147/100; PULSE 61; RESP 18; O2SAT 100
== END 2024-05-29 05:31 | disposition home or self-care (01) ==
PROVIDERS: Emergency Provider Emergency Medicine; PCP Family Medicine
DX: L76.34 Postprocedural seroma of skin and subcutaneous tissue following other procedure (principal)
CPT/HCPCS: 36415; 76705; 80053; 85025; 99284